=== PATIENT | female | born 1980 | race African-American/Black ===

== ENCOUNTER 2017-09-05 19:02 | Emergency (ER) | payer BC, MEDICAID ==
[~2017-09-05 19:02] MED LIST: METO10TA PO; ZOFR4TAB3 SL
[2017-09-05 19:15] VITALS: BP 189/94; PULSE 61; RESP 16; TEMP 98.2; O2SAT 100
--- NOTE | 2017-09-06 09:16 | PD ---
Physical Exam Date Seen by Provider: Sep 05, 2017 Time Seen by Provider: 22:57 Narrative 36-year-old female presents to the emergency department for evaluation of hypertension. She reports symptoms of intermittent headaches and dizziness for approximately 6 weeks. She also states she was short of breath today. She has no pain at this time. Data Data Last Documented VS Vital Signs Date Time Temp Pulse Resp B/P (MAP) Pulse Ox O2 Delivery O2 Flow Rate FiO2 09/05/17 19:15 98.2 61 16 189/94 (125) 100 MDM Supervised Visit with ISABEL: No Narrative Course 36-year-old female presents to the emergency department for evaluation of high blood pressure. Patient is initially seen in triage. She left AGAINST MEDICAL ADVICE before she could be moved to medical bed. Diagnosis Primary Impression: Left against medical advice Patient Instructions: General Instructions Departure Forms: Tests/Procedures Disposition: 07 AGAINST MEDICAL ADVICE Blanche Vagn Sep 06, 2017 09:16
== END 2017-09-06 00:11 | disposition left against medical advice (07) ==
LOC: NED 22:50
DX: Z53.21 Procedure and treatment not carried out due to patient leaving prior to being seen by health care provider (principal)
CPT/HCPCS: 99281